=== PATIENT | male | born 1990 | race Caucasian/White ===

== ENCOUNTER 2021-11-08 12:18 | Emergency (ER) | payer OTHER ==
[2021-11-08] MEDS ORDERED: AUGMENTIN 875-1 EACH PO (13:06)
[2021-11-08] MEDS ORDERED: ZYRTEC10 MG PO (13:06)
== END 2021-11-08 13:08 | disposition home or self-care (01) ==
LOC: ER1 12:18
DX: J30.9 Allergic rhinitis, unspecified (principal); F17.200 Nicotine dependence, unspecified, uncomplicated
CPT/HCPCS: 99283